=== PATIENT | male | born 1955 | race Caucasian/White ===

== ENCOUNTER 2020-05-22 18:50 | Emergency (ER) | payer BC ==
[~2020-05-22] VITALS: Ht 190.5 cm; Wt 127.0 kg
[2020-05-22] MEDS ORDERED: ENALAPRIL MALEA20 MG PO (19:08)
[2020-05-22] MEDS ORDERED: ATORVASTATIN CA40 MG PO (19:08)
[2020-05-22] MEDS ORDERED: FUROSEMIDE40 MG PO (19:09)
[2020-05-22] MEDS ORDERED: POTASSIUM CHLO20 ME1 PO (19:09)
[2020-05-22] MEDS ORDERED: METOPROLOL SUCC25 MG PO (19:09)
[2020-05-22] MEDS ORDERED: GLUCOSAMINE CH1 EAC1 PO (19:10)
[2020-05-22] MEDS ORDERED: BAYER CHEWABLE81 MG PO (19:10)
[2020-05-22] MEDS ORDERED: VITAMIN D250 MCG PO (19:10)
[2020-05-22] MEDS ORDERED: FISH OIL 1,0001 EAC2 NG ×2 (19:11)
--- NOTE | 2020-05-22 20:38 | NUR ---
Todd Melchor suggested I touch base with pt and family as pt was to be transported. Pt appeared in good spirits. was teary but stable. Son appeared stoic. All indicated no immediate needs. Provided with [employer]. requested address of destination hospital. Todd Melchor assisted and I provided address and phone number to who indicated her appreciation.
--- NOTE | 2020-05-23 19:14 | EKG ---
[facility] [address] [facility] [place], [place] [address] Signed Normal sinus rhythm with sinus arrhythmia Inferior infarct , age undetermined Anteroseptal injury pattern ACUTE NM / STEMI Abnormal ECG No previous ECGs available Confirmed by MARLEY LOW MD ([id number]) on 05/23/2020 7:14:17 PM Electronically Signed By: MARLEY LOW MD 05/23/20 1914 PATIENT NAME: MILTONJAYDEN FISCHER Electrocardiogram DATE OF : 51 PHYSICIAN: MARLEY LOW MD REPORT #: [id number] REPORT IS CONFIDENTIAL AND NOT TO BE RELEASED WITHOUT AUTHORIZATION
== END 2020-05-22 19:40 | disposition short-term general hospital (02) ==
LOC: ED 18:50
DX: I21.3 ST elevation (STEMI) myocardial infarction of unspecified site (principal); I10 Essential (primary) hypertension; Z79.899 Other long term (current) drug therapy; Z79.82 Long term (current) use of aspirin
CPT/HCPCS: 71045; 80053; 83735; 84484; 85025; 93005; 93010; 96374; 99285-25; J1644

== ENCOUNTER 2020-06-08 02:13 | Emergency (ER) | payer BC ==
[~2020-06-08] VITALS: Ht 190.5 cm; Wt 127.0 kg
[~2020-06-08 02:13] MED LIST: ATORVASTATIN CA40 MG PO; BAYER CHEWABLE81 MG PO; EFFIENT10 MG PO; ENALAPRIL MALEA20 MG PO; ENOXAPARIN120 MG/0.8 SUB-Q; FISH OIL 1,0001 EAC2 NG; FISH OIL 1,0001 EAC2 PO; FUROSEMIDE40 MG PO; GLUCOSAMINE CH1 EAC1 PO; METOPROLOL SUCC25 MG PO; NITROGLYCERIN0.4 MG SL; POTASSIUM CHLO20 ME1 PO; VITAMIN D250 MCG PO; WARFARIN SODIUM5 MG PO
--- OUTSIDE RECORDS SUMMARY | 2020-06-08 02:16 | XMS ---
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 Tevin has no Care Guidelines for this patient. Shayna VISIT COUNT (12 MO.) 2 [facility] TOTAL 2 NOTE: Visits indicate total known visits. ED/C VISIT TRACKING (12 MO.) 06[facility]08/2020 02[facility]15 [facility] Emergency COMPLAINT: - LT SIDE FLANK PAIN 05/22/2020 18:50 AARON Diaz TYPE: Emergency COMPLAINT: - CHEST PAIN DIAGNOSES: - ST elevation (STEMI) myocardial infarction of unspecified site - Essential (primary) hypertension - Chest pain, unspecified - Other parts counterman (current) drug therapy - intermodal owner operator truck driver (current) use of aspirin INPATIENT VISIT TRACKING (12 MO.) 05/23/2020 01:47 [facility] Herbert ANDRES TYPE: Internal Medicine DIAGNOSES: - Thoracic aortic ectasia - Unilateral primary osteoarthritis, left knee - CAD - ST elevation (STEMI) myocardial infarction involving left main coronary artery 05/22/2020 22:04 Jamie ANDRES TYPE: Medical Surgical COMPLAINT: - NON STEMI DIAGNOSES: 0. Chest pain, unspecified 1. Atherosclerotic heart disease of [place] coronary artery without angina pectoris 2. Essential (primary) hypertension 3. Hyperlipidemia, unspecified 4. Personal history of malignant neoplasm of prostate 5. Other parts counterman (current) drug therapy 6. prison (current) use of aspirin 7. Family history of ischemic heart disease and other diseases of the circulatory system [email or web address]
[2020-06-08] MEDS ORDERED: LISINOPRIL10 MG PO (02:37)
[2020-06-08] MEDS ORDERED: PERCOCET 5-3251 EACH PO (06:30)
== END 2020-06-08 06:59 | disposition home or self-care (01) ==
LOC: ED 02:13
DX: N13.30 Unspecified hydronephrosis (principal); I10 Essential (primary) hypertension; E78.00 Pure hypercholesterolemia, unspecified; I25.2 Old myocardial infarction; Z79.899 Other long term (current) drug therapy; Z79.82 Long term (current) use of aspirin
CPT/HCPCS: 74178; 80053; 81001; 85025; 85610; 96375; 96376; 99284-25; J1170; J2405; Q9967

== ENCOUNTER 2020-08-01 16:11 | Emergency (ER) | payer BC ==
[~2020-08-01] VITALS: Ht 190.5 cm; Wt 127.0 kg
[~2020-08-01 16:11] MED LIST changes: +LISINOPRIL10 MG PO; +PERCOCET 5-3251 EACH PO
[2020-08-01] MEDS ORDERED: METOPROLOL SUCC50 MG PO (16:39)
--- NOTE | 2020-08-03 13:32 | EKG ---
[facility] [address] [facility] [place], [place] [address] Signed Normal sinus rhythm Possible Inferior infarct , age undetermined Abnormal ECG Confirmed by MARLEY LOW MD ([id number]) on 08/03/2020 1:32:12 PM Electronically Signed By: MARLEY LOW MD 08/03/20 1332 PATIENT NAME: JAYDEN ROSE Electrocardiogram DATE OF : 51 PHYSICIAN: MARLEY LOW MD REPORT #: [id number] REPORT IS CONFIDENTIAL AND NOT TO BE RELEASED WITHOUT AUTHORIZATION
== END 2020-08-01 19:57 | disposition home or self-care (01) ==
LOC: ED 16:11
DX: R07.89 Other chest pain (principal); I10 Essential (primary) hypertension; I25.2 Old myocardial infarction; E78.00 Pure hypercholesterolemia, unspecified; Z88.8 Allergy status to other drugs, medicaments and biological substances; Z79.899 Other long term (current) drug therapy; Z79.82 Long term (current) use of aspirin
CPT/HCPCS: 71045; 80053; 83735; 84484; 85025; 93005; 93010; 99285-25

== ENCOUNTER → 2022-08-31 | Emergency (ER) | payer BC ==
[~2022-08-31] VITALS: Ht 190.5 cm; Wt 125.2 kg
[~2022-08-31] MED LIST changes: +METOPROLOL SUCC50 MG PO; +POTASSIUM CHLOR8 MEQ PO
[2022-08-31 16:00] VITALS: BP 145/90
--- NOTE | 2022-09-05 19:06 | EKG ---
[facility] [address] [facility] [place], [place] [address] Signed Sinus rhythm with occasional premature ventricular complexes and premature atrial complexes Right bundle branch block Inferior infarct , age undetermined Abnormal ECG prolonged QTc No previous ECGs available Confirmed by FREEDOM RAMIRES MD ([id number]) on 09/05/2022 7:06:14 PM Electronically Signed By: FREEDOM RAMIRES 09/05/22 1906 PATIENT NAME: JAYDEN ROSE Electrocardiogram DATE OF : 51 PHYSICIAN: FREEDOM RAMIRES REPORT #: [id number] REPORT IS CONFIDENTIAL AND NOT TO BE RELEASED WITHOUT AUTHORIZATION
== END ==
LOC: ED 13:19
DX: I46.9 Cardiac arrest, cause unspecified (principal); E87.6 Hypokalemia; I10 Essential (primary) hypertension; I25.2 Old myocardial infarction; Z20.822 Contact with and (suspected) exposure to COVID-19; Z95.5 Presence of coronary angioplasty implant and graft; Z96.653 Presence of artificial knee joint, bilateral; Z79.01 Long term (current) use of anticoagulants; Z79.899 Other long term (current) drug therapy; Z79.82 Long term (current) use of aspirin
CPT/HCPCS: 31500; 36415; 36556; 51702; 71045; 80053; 82803; 84484; 85025; 87502; 93005; 93010; 94002; 99285 25; C9803; J0171; J0282; J2704; J3010; J3480; U0002